=== PATIENT | male | born 1965 | race Asian ===

== ENCOUNTER 2021-08-07 14:18 | Emergency (ER) | payer OTHER ==
[~2021-08-07] VITALS: Ht 180.3 cm; Wt 68.0 kg
[2021-08-07 15:50] VITALS: BP 137/79; TEMP 99.7
== END 2021-08-07 15:50 | disposition home or self-care (01) ==
LOC: ED 14:18
DX: J06.9 Acute upper respiratory infection, unspecified (principal); J11.1 Influenza due to unidentified influenza virus with other respiratory manifestations; Z20.822 Contact with and (suspected) exposure to COVID-19; F17.210 Nicotine dependence, cigarettes, uncomplicated
CPT/HCPCS: 87502; 87635; 87651; 99283; U0003